=== PATIENT | female | born 1985 | race Caucasian/White ===

== ENCOUNTER → 2017-10-25 | Outpatient (CLI) | payer OTHER | END | disposition home or self-care (01) | LOC: KCIC 07:38 | DX: K59.09 Other constipation (principal) | CPT/HCPCS: 74270 ==

== ENCOUNTER → 2018-02-27 | Outpatient (CLI) | payer OTHER ==
--- NOTE | 2018-03-04 13:57 | RAD ---
EXAM: AP view of the abdomen DATE: 02/27/2018 8:36 AM INDICATION: Sitz study chronic constipation COMPARISON: No Prior FINDINGS: AP view of the abdomen was performed immediately following ingestion of Sitz capsule and 6 days following the administration of Sitz capsule which contained 24 Sitz markers. On day one, the capsule is seen located within the stomach with the round radiopaque markers tightly clustered together. Moderate colonic stool content is seen. On day 6, there are 14 round Sitz markers seen throughout the abdomen and pelvis. IMPRESSION: Sitz study with 14 markers retained within the colon on Day 6 suggesting delayed colonic transit. Electronically signed by: George Sommer MD (03/04/2018 1:53 PM) [facility]
== END | disposition home or self-care (01) ==
LOC: RAD 08:06
PROVIDERS: ATTEND Internal Medicine Gastroenterology
DX: K59.09 Other constipation (principal)
CPT/HCPCS: 74250